=== PATIENT | male | born 1985 | race African-American/Black ===

== ENCOUNTER 2017-10-20 04:51 | Emergency (ER) | payer MEDICAID, MEDICARE ==
[~2017-10-20] VITALS: Ht 165.1 cm; Wt 104.3 kg
[~2017-10-20 04:51] MED LIST: LITH600C PO; QUET300T2 PO
[2017-10-20] MEDS ORDERED: GABAPENTIN 100MG CAPSULES (05:18)
[2017-10-20] MEDS ORDERED: GABAPENTIN 300 MG CAPSULE PO ONE (05:30)
[2017-10-20 05:36] VITALS: BP 135/95
--- NOTE | 2017-10-20 05:36 | NUR ---
Patient discharged to home in stable conditon. Written and verbal after care instructions given. Patient verbalizes understanding of instructions.
[2017-10-20] MEDS ORDERED: GABAPENTIN 300 MG CAPSULE ONE (05:43)
== END 2017-10-20 05:41 | disposition home or self-care (01) ==
LOC: ER 04:51
DX: G89.29 Other chronic pain (principal); G62.9 Polyneuropathy, unspecified; Z59.0 Homelessness; M79.632 Pain in left forearm; I10 Essential (primary) hypertension; F17.200 Nicotine dependence, unspecified, uncomplicated; Z88.8 Allergy status to other drugs, medicaments and biological substances
CPT/HCPCS: A4663